=== PATIENT | female | born 1945 ===

== ENCOUNTER 2019-02-23 03:07 | Observation (INO) ==
--- NOTE | 2019-02-23 07:17 | Internal Med History&Physical ---
Date of Encounter: 02/23/19 Time of Encounter: 07:10 Internal Medicine - H&P: HPI Chief complaint: Hematochezia Admitted From: Emergency Dept History of present illness: Kathleen Bautista is a 73 F w hx provoked RLE DVT 02/16 s/p R TKA 12/28 now on Eliquis, anx/dep, who p/w bloody bowel movement. Occurred once last night, blood in stool and in toilet bowl and on toilet paper, bright red, no clots. Did not recur. Has been on AC for 1 week, and says that for the last 5 days has had nausea as well as multiple episodes nonbloody vomiting unrelated to food intake; able to hold down her Eliquis she thinks. For the last 3 days, she's noticed low intensity crampy RLQ and suprapubic abd pain that is dull, non-radiating. Has been feeling lightheaded a few times since these other symptoms started. Denies hx GI problems including no GI bleeds in the past. On ROS, does have headache from not sleeping much overnight as well as chronic R knee pain, but denies dysphagia, CP, SOB, bloating, diarrhea, leg swelling. In the OSH ED, vitals T 97.9, HR 80s, RR 16, SBP 150-160s, satting 93-95% on RA. Labs notable for WBC 10, Hb 11 (from 9 post-op), INR 2.3, K 3.5, BUN 29, Cr 1.1. Urine remarkable for trace ketones. CT a/p suggesting possible mild acute sigmoid diverticulitis but no other abnormalities. Pt given doses of Zosyn, protonix, dilaudid, and started on MIVF@75 prior to sending to [facility]. Past medical, surgical, social, and family histories reviewed and updated as below. Past Med Surg Social Fam HX - Past Medical History Medical history: arthritis Additional medical history: Depression Psychiatric history: anxiety, depression - Past Surgical History Surgical History: appendectomy, cholecystectomy Additional surgical history: L Shoulder surgery, bilateral knee replacement, right knee revision, "fatty tissue removed from stomach wall lining" 03/2018 - Social History Smoking Status: Never smoker Smokeless Tobacco Status: No Alcohol use: none Drug use: none - Family History Maternal Adopted: No Living Status: Hx Family Cardiac Disorders: Yes (congestive heart failure) Father Family Member Ethnicity: Non- Living Status: Hx Family Respiratory Disorders: Yes Hx Family GI Disorders: Yes Brother Living Status: Internal Medicine - H&P: Meds Buspirone HCl [Buspar] 10 mg PO BID 12/28/18 [History] Acetaminophen [Non-Aspirin Extra Strength] 500 mg PO Q6H PRN 7 Days #28 tablet 12/29/18 [Rx] Ascorbic Acid [Vitamin C] 500 mg PO BIDWM tablet 01/02/19 [Rx] Calcium Carbonate [Tums] 1,000 mg PO TID PRN tab.chew 01/02/19 [Rx] Citalopram [CeleXA] 20 mg PO QAM tablet 01/02/19 [Rx] Multivit/Ca/Min/Fe/FA [Thera M Plus] 1 tab PO DAILY tablet 01/02/19 [Rx] Omeprazole [PriLOSEC] 40 mg PO DAILY@0630 #30 capsule. 01/10/19 [Rx] Apixaban [Eliquis] 10 mg PO BID 02/22/19 [History] Allergy/AdvReac Type Severity Reaction Status Date / Time morphine Allergy Rash, Verified 02/23/19 00:42 Itching All Systems PM: A 10-system review of systems was performed and is negative for pertinent findings except as documented above in the HPI. - Constitutional Vitals: Temp Pulse Resp BP Pulse Ox 97.9 F 81 18 143/82 92 02/23/19 06:51 02/23/19 06:51 02/23/19 06:51 02/23/19 06:51 02/23/19 06:51 Exam: General: NAD, good eye contact, comfortable appearing, obese Head: Atraumatic, normocephalic. Face symmetric Eyes: EOMI, sclerae anicteric ENT: Mucous membranes dry. Normal oral mucosa and dentition. Trachea midline. Thoracic: No visible chest wall deformities. Normal breath sounds b/l, no wheezing or crackles Cardio: Normal S1 and S2, regular rate and rhythm, no murmurs Abdomen: Soft, nondistended, obese. Bowel sounds present. No rebound. Does have mild-moderate TTP RLQ and suprapubic region Extremities: Warm, well perfused. DP pulses 2+ b/l. No clubbing, cyanosis. Does have mild nonpitting edema b/l ankles Skin: Intact. No rashes, bruises, or ulcers Neuro: Awake, fully oriented. Good memory, concentration, attention. Speech fluent. CN II-XII grossly intact. Strength 5/5 in b/l UE and LE - Summary of Assessment and Plan Summary of Assessment and Plan: Kathleen Bautista is a 73 F w hx DVT on AC, anx/dep, morbid obesity, OA, who p/w hematochezia, RLQ abd pain, N/V, and CT suggesting possible sigmoid diverticulitis. Sigmoid diverticulitis: questionable per CT, and pain is RLQ so ?referred from sigmoid, although does report associated N/V - stop zosyn - start unasyn w plan to convert to augmentin when able to PO - NS 1L slow bolus over 4 hrs then MIVF as below Hematochezia: while on AC, vitals and Hb unremarkable, will continue AC DVT: high risk for bleeding as above - hold eliquis - hep gtt Hypokalemia: replace and monitor Chronic normocytic anemia: Hb improved to 11 from last postop check which was 9, will monitor Anx/dep: home buspar 10 bid, celexa 20 daily Morbid obesity: BMI 43 PPx: therapeutic - hep gtt and transition back to eliquis at d/c Tele: no Activity: up w assist FEN: liquid diet, MIVF NS@100 x2L, reassess in AM and can stop if has decent PO Lines: PIV Consults: Code: Full Dispo: obs for abd pain and GI bleeding, anticipate 1-2 days, will be homegoing
[2019-02-23] MEDS ORDERED: 0.9 % Sodium Chloride 1,000 ML IVC ONE (07:37)
[2019-02-23] MEDS ORDERED: Naloxone 0.4 MG/ML INJ IVP PRN (07:37)
[2019-02-23] MEDS ORDERED: *HR* Heparin 5,000 UNIT/ML VIAL IVP PRN ×2 (08:25)
[2019-02-23] MEDS ORDERED: Heparin 25,000 UNIT/250 ML D5W 25,000 UNIT/250 ML IV.SOLN IVC SCH (08:30)
[2019-02-23 09:56] LABS: Hematocrit 33.6 % (35.3-44.9); Hemoglobin 10.4 g/dL (11.5-15.4); Mean Corpuscular Hemoglobin 30.3 pg (28.0-33.3); Mean Platelet Volume 9.4 fL (9.4-12.4); Platelet Count 229 K/mcL (140-400); Red Blood Count 3.43 M/mcL (3.82-4.97); Red Cell Distribution Width 13.2 % (11.5-14.5); White Blood Count 7.2 K/mcL (4.3-11.1)
[2019-02-23 10:03] LABS: INR 1.7; Prothrombin Time 19.3 Seconds (9.4-12.1)
[2019-02-23] MEDS: Ketorolac 15 MG/ML VIAL IVP PRN ×2 (10:09→17:47)
[2019-02-23 10:20] LABS: Heparin anti-factor XA UFH > 2.00 IU/mL (0.30-0.70)
[2019-02-23] MEDS: Ampicillin/Sulbactam 3,000 MG in 0.9 % Sodium Chloride Mini Bag 100 ML IVPB SCH ×2 (10:45→19:57)
[2019-02-23] MEDS: Heparin 25,000 UNIT/250 ML D5W 25,000 UNIT/250 ML IV.SOLN IVC SCH (11:41)
[2019-02-23] MEDS: 0.9 % Sodium Chloride 1,000 ML IVC SCH (13:38)
[2019-02-23] MEDS: Acetaminophen 325 MG TABLET PO PRN (13:57)
[2019-02-24] MEDS: 0.9 % Sodium Chloride 1,000 ML IVC SCH (00:09)
[2019-02-24] MEDS: Ampicillin/Sulbactam 3,000 MG in 0.9 % Sodium Chloride Mini Bag 100 ML IVPB SCH ×2 (00:09→05:30)
[2019-02-24] MEDS: Ketorolac 15 MG/ML VIAL IVP PRN (00:15)
[2019-02-24 01:46] LABS: Hemoglobin 10.1 g/dL (11.5-15.4); Mean Corpuscular HGB Conc 31.6 g/dL (31.6-35.5); Mean Corpuscular Hemoglobin 30.6 pg (28.0-33.3); Mean Platelet Volume 9.4 fL (9.4-12.4); Platelet Count 223 K/mcL (140-400); Red Cell Distribution Width 13.1 % (11.5-14.5); White Blood Count 7.5 K/mcL (4.3-11.1)
[2019-02-24 02:01] LABS: BUN/Creatinine Ratio 18 (6-26); Blood Urea Nitrogen 10 mg/dL (8-23); Calcium 8.6 mg/dL (8.6-10.3); Carbon Dioxide 23 mEq/L (23-29); Chloride 110 mEq/L (98-107); Glucose 99 mg/dL (70-105); Magnesium 1.3 mg/dL (1.6-2.6); Osmolality,Calculated 291 (280-300); Potassium 3.7 mEq/L (3.5-5.1); Sodium 141 mEq/L (136-145); eGFR For African Americans > 60 (> 60); eGFR For Non-African Americans > 60 (> 60)
[2019-02-24 02:15] LABS: Activated Partial Thrombo Time 166.8 Seconds (26.0-36.0)
[2019-02-24 02:19] LABS: Troponin I < 0.03 ng/mL (< 0.04)
[2019-02-24 02:26] LABS: Heparin anti-factor XA UFH > 2.00 IU/mL (0.30-0.70)
[2019-02-24] MEDS: Acetaminophen 325 MG TABLET PO PRN ×2 (03:01→10:42)
[2019-02-24] MEDS: Heparin 25,000 UNIT/250 ML D5W 25,000 UNIT/250 ML IV.SOLN IVC SCH ×2 (03:35→21:19)
[2019-02-24] MEDS: Ondansetron 4 MG/2 ML VIAL IVP PRN ×2 (10:07→18:30)
[2019-02-24] MEDS: Pantoprazole 40 MG VIAL IVP SCH (10:12)
[2019-02-24] MEDS: MetroNIDAZOLE 500 MG/100 ML 500 MG/100 ML BAG IVPB SCH ×2 (11:30→20:31)
[2019-02-24] MEDS: *HR* OxyCODONE/APAP 5/325 TABLET PO PRN ×2 (11:39→20:30)
--- NOTE | 2019-02-24 11:51 | Gastroenterology Consult Note ---
<Pascual Ballard - Last Filed: 02/24/19 11:47> Date of Encounter: 02/24/19 Time of Encounter: 10:45 - Assessment and plan (1) GI bleed Current Visit: Yes Status: Acute Assessment and plan: Patient with BRBPR x one episode, no further episodes. She was recently started on Eliquis due to RLE DVT found on 02/16/2019. Consider colonoscopy, Dr. Gonzalez to make determination. Qualifiers: Qualified Code(s): K92.2 - Gastrointestinal hemorrhage, unspecified (2) Anemia Current Visit: No Status: Acute Assessment and plan: Hgb stable. On arrival to ED Hgb 11.1. On admission here Hgb 10.4 with MCV 98 and INR 1.7. This AM Hgb 10.1 with MCV 97. Continue to monitor CBC and transfuse PRBC as needed. Consider colonoscopy while inpatient. Qualifiers: Anemia type: unspecified type Qualified Code(s): D64.9 - Anemia, unspecified (3) Sigmoid diverticulitis Current Visit: No Status: Acute Assessment and plan: CT A/P showed very mild acute sigmoid diverticulitis. Continue Cipro and Flagyl. Diverticulitis does not typically cause rectal bleeding. Dr. Gonzalez to review CT images and make determination on colonoscopy while inpatient. - Time Spent With Patient Total time spent is greater than 50% in coordination of care (as documented) at patient's floor/unit and/or counseling patient: GI History of Present Illness - Data of Consult Patient: new to practice Consult date: 02/24/19 Requesting Physician: Tano Melo MD - Consult Narrative Reason for consult: GI Bleed History of present illness: Ms. Bautista is a 73 year old female with PMHx of arthritis, right total knee replacement revision 12/28/2018, RLE DVT 02/16/2019 on Eliquis who presented with complaints of BRBPR and abdominal pain. Patient reports one episode of large amount of BRBPR in bowl and with wiping. She reports she started Eliquis on 02/16. She reports RLQ pain on admission, but believes this is caused by compensation from her knee surgery. She also reports LLQ pain, that started yesterday. CT A/P showed very mild acute sigmoid diverticulitis. On arrival to ED Hgb 11.1, on admission here Hgb 10.4 with MCV 98 and INR 1.7, this AM Hgb 10.1 with MCV 97. Procedures: No record NSAIDs: Aspirin Anticoagulation: Eliquis Past Med Surg Social Fam HX - Past Medical History Medical history: arthritis Additional medical history: Depression Psychiatric history: anxiety, depression - Past Surgical History Surgical History: appendectomy, cholecystectomy Additional surgical history: L Shoulder surgery, bilateral knee replacement, right knee revision, "fatty tissue removed from stomach wall lining" 03/2018 - Social History Smoking Status: Never smoker Smokeless Tobacco Status: No Alcohol use: none Drug use: none - Family History Maternal Adopted: No Living Status: Hx Family Cardiac Disorders: Yes (congestive heart failure) Father Family Member Ethnicity: Non- Living Status: Hx Family Respiratory Disorders: Yes Hx Family GI Disorders: Yes Brother Living Status: - Gastrointestinal Gastrointestinal: Present: as per HPI - Constitutional Constitutional: as per HPI - EENT Eyes: as per HPI Ears: Present: as per HPI Nose, mouth and throat: Present: as per HPI - Cardiovascular Cardiovascular ROS: Present: as per HPI - Respiratory Respiratory IM: Present: as per HPI - Genitourinary Genitourinary: Absent: change in color, Urinary frequency - Neurological ROS Neurological GI: Present: as per HPI - Hematologic/Lymphatic Hematologic/Lymphatic pediatric: Present: as per HPI - Musculoskeletal Musculoskeletal ROS GI: Present: as per HPI - Integumentary Integumentary GI: Present: as per HPI - Psychiatric ROS Psychiatric GI: Present: as per HPI - Endocrine Endocrine IM: Present: as per HPI - Constitutional Vitals: Temp Pulse Resp BP Pulse Ox 98.3 F 81 16 181/84 94 02/24/19 11:02 02/24/19 11:02 02/24/19 11:02 02/24/19 11:02 02/24/19 11:02 General appearance: Present: cooperative, A&O X 3, no acute distress, answers questions appropriately - Head Head exam: Present: atraumatic, normocephalic - Eye Eye exam: Present: normal appearance, sclera anicteric - ENT ENT exam: Present: mucous membranes moist - Neck Neck exam general surgery: Present: normal inspection, trachea midline - Respiratory Respiratory exam: Present: CTAB. Absent: rales, rhonchi - Cardiovascular Cardiovascular exam: Present: RRR, +S1, +S2 - GI/Abdominal GI/Abdominal exam: Present: soft, tenderness (LLQ), no peritoneal signs. Absent: distended, firm, guarding - Rectal Rectal exam: Present: deferred - Extremities Exam Extremities exam: Present: warm - Neurological Exam Neurological exam: Present: no focal deficits - Psychiatric Psychiatric exam: Present: normal affect, normal mood - Skin Skin exam: Present: dry, intact, normal color, warm Results - Labs CBC & Chem 7: 02/24/19 01:31 02/24/19 01:31 Labs: Last Result 02/24/19 01:31 Calcium 8.6 Troponin I < 0.03 Entire Visit 02/24/19 01:31 Hgb 10.1 L Hct 32.0 L - ABG ABG results: PT/INR, D-dimer PT 19.3 Seconds (9.4-12.1) H 02/23/19 09:42 Consult Discharge Plan - Plan Referrals: Harpreet Navarro MD [Partnered Physician] - 03/21/19 9:10 am Lala Toure CNP [Primary Care Provider] - 02/28/19 11:00 am <Kenneth Gonzalez - Last Filed: 02/24/19 19:33> Date of Encounter: 02/24/19 Time of Encounter: 13:00 - Time Spent With Patient Total time spent is greater than 50% in coordination of care (as documented) at patient's floor/unit and/or counseling patient: GI History of Present Illness - Data of Consult Requesting Physician: Tano Melo MD - Consult Narrative History of present illness: Ms. Bautista is a 73 year old female - Constitutional Vitals: Temp Pulse Resp BP Pulse Ox 97.9 F 72 16 167/91 97 02/24/19 15:38 02/24/19 15:38 02/24/19 15:38 02/24/19 15:38 02/24/19 15:38 Results - Labs CBC & Chem 7: 02/24/19 01:31 02/24/19 01:31 - ABG ABG results: PT/INR, D-dimer PT 19.3 Seconds (9.4-12.1) H 02/23/19 09:42 - Attending Attestation I have personally performed a face to face evaluation on this patient. I have reviewed and agree with the care plan. History and Exam by me shows: Pt seen. no more rectal bleed / O/E: mild lower abd tanderness. A: pt with rectal bleed no onbious diverticulitis. poss Ischemic colitis. rec: colon in am
--- NOTE | 2019-02-24 13:14 | Internal Med Progress Note ---
Hospitalist Progress Note - Encounter Date of Encounter: 02/24/19 Time of Encounter: 09:00 - Subjective Interval History: Lily is a 73 F w hx provoked RLE DVT 02/16 s/p R TKA 12/28 now on Eliquis, anxiety, depression, who went to [facility] ER with bright red blood per rectum x 1 episode. She also mentioned intarctable nausea, vomiting with crampy lower abdomen pain b/l more on Rt side since last [address] of Abd showed possible sigmoid diverticulitis. She was admitted in the hospital and placed on empirical antibiotic and IV hydration. Pt is still c/o lower abd pain.. Denied any more bright red blood per rectum. She denied any BM today. - Exam Vitals: Temp Pulse Resp BP Pulse Ox 98.3 F 81 16 181/84 94 02/24/19 11:02 02/24/19 11:02 02/24/19 11:02 02/24/19 11:02/24/19 11:02 Exam: Gen: Alert, awake, Oriented to time,place and person Chest: Diminished breath sounds B/L, No wheezing, No crackles, No rales Heart: S1S2+ RRR No murmurs Abd: Soft, moderate tenderness in RLQ and mild tenderness in LLQ, BS +, No organomegaly Ext: No edema, pulses are palpable, No calf tenderness Neuro : No acute focal neuro deficits noticed Skin: No rash. - Assessment and Plan (1) Lower gastrointestinal hemorrhage Current Visit: No Status: Acute Assessment and Plan: Her Hb stable @ 10.1 now cont close monitoring Her bleed could be due to diverticulitis vs Ischemic colitis cont IV Heparin gtt for now GI consulted scheduled for Colonoscopy in AM (2) Sigmoid diverticulitis Current Visit: No Status: Acute Assessment and Plan: Reviewed CT of Abd .. Concerning for possible diverticulitis vs ischemic colitis GI consulted clear liquid diet for now changed abx to Cipro and Flagyl continue symptomatic and supportive care (3) Deep vein thrombosis (DVT) of right lower extremity Current Visit: Yes Status: Acute Assessment and Plan: Held Eliquis for anti coag cont Heparin gtt for now (4) Status post revision of total knee replacement Current Visit: No Status: Acute Assessment and Plan: Stable need to follow up with ortho an outpatient (5) Anxiety Current Visit: No Status: Chronic Assessment and Plan: Resumed home medications (6) Depression Current Visit: No Status: Chronic - Time Spent with Patient Total time spent is greater than 50% in coordination of care (as documented) at patient's floor/unit and/or counseling patient: Internal Medicine: Result - Labs CBC & Chem 7: 02/24/19 01:31 02/24/19 01:31 Labs: Short CBC 02/24/19 Range/Units 01:31 WBC 7.5 (4.3-11.1) K/mcL Hgb 10.1 L (11.5-15.4) g/dL Hct 32.0 L (35.3-44.9) % Plt Count 223 (140-400) K/mcL BMP 02/24/19 01:31 Sodium 141 Potassium 3.7 Chloride 110 H Carbon Dioxide 23 BUN 10 Creatinine 0.57 L Glucose 99 Calcium 8.6 Cardiac Enzymes 02/24/19 Range/Units 01:31 Troponin I < 0.03 (< 0.04) ng/mL - ABG Interpretation ABG results: PT/INR, D-dimer PT 19.3 Seconds (9.4-12.1) H 02/23/19 09:42 Consult Discharge Plan - Plan Referrals: Harpreet Navarro MD [Partnered Physician] - 03/21/19 9:10 am Lala Toure CNP [Primary Care Provider] - 02/28/19 11:00 am (3) Deep vein thrombosis (DVT) of right lower extremity Qualifiers: Affected thrombotic vein of extremity: other lower extremity vein Chronicity: acute Qualified Code(s): I82.491 - Acute embolism and thrombosis of other specified deep vein of right lower extremity (4) Status post revision of total knee replacement Qualifiers: Laterality: right Qualified Code(s): Z96.651 - Presence of right artificial knee joint (6) Depression Qualifiers: Depression Type: unspecified Qualified Code(s): F32.9 - Major depressive disorder, single episode, unspecified
[2019-02-24] MEDS ORDERED: SODIUM CHLORIDE/NAHCO3/KCL/PEG 4,000 ML SOLN.RECON PO ONE (17:00)
[2019-02-25 02:25] LABS: Activated Partial Thrombo Time 151.2 Seconds (26.0-36.0)
[2019-02-25 02:32] LABS: Heparin anti-factor XA UFH 1.5 IU/mL (0.30-0.70)
[2019-02-25] MEDS: MetroNIDAZOLE 500 MG/100 ML 500 MG/100 ML BAG IVPB SCH ×3 (03:32→17:54)
[2019-02-25] MEDS: Pantoprazole 40 MG VIAL IVP SCH (08:10)
[2019-02-25] MEDS: *HR* OxyCODONE/APAP 5/325 TABLET PO PRN ×2 (09:34→17:54)
--- NOTE | 2019-02-25 09:50 | Internal Med Progress Note ---
Hospitalist Progress Note - Encounter Date of Encounter: 02/25/19 Time of Encounter: 09:48 - Subjective Interval History: I have seen and evaluated the patient at bedside. Patient reported left and right lower quadrants abdominal pain. denies nausea or vomiting, reported headache. - Exam Vitals: Temp Pulse Resp BP Pulse Ox 98.2 F 110 17 157/93 92 02/25/19 07:22 02/25/19 07:22 02/25/19 07:22 02/25/19 07:22 02/25/19 07:22 Exam: Vitals: Reviewed General: Alert and oriented x4. In mild distress due to abdominal pain Cardiovascular: RRR, normal S1 & S2, no rubs, murmurs or gallops. Lungs: CTA b/l, no wheezes or crackles. Abdomen: Obese, soft, non-tender, no rigidity. Extremities: No edema. healed surgical scar on both knees Neurological: Normal cognition and motor skills. Rest of the physical exam is non contributory - Assessment and Plan (1) Status post revision of total knee replacement Current Visit: No Status: Acute (2) Anxiety Current Visit: No Status: Chronic (3) Depression Current Visit: No Status: Chronic (4) Lower gastrointestinal hemorrhage Current Visit: No Status: Resolved (5) Sigmoid diverticulitis Current Visit: No Status: Acute (6) Deep vein thrombosis (DVT) of right lower extremity Current Visit: Yes Status: Acute - Summary of Assessment and Plan Summary of Assessment and Plan: 73 F w hx provoked RLE DVT 02/16 s/p R TKA 12/28 now on Eliquis, anx/dep, who p/w bloody bowel movement. Assessment: 1. Acute sigmoid diverticulitis 2. GI bleed (resolved) 3. Anemia 4. Provoke DVT 5. S/P left knee replacement 6. Anxiety 7. Depression 8. VTE prophylaxis Plan H&h stable. patient denies blood stool. continues to report abdominal pain. - scheduled for colonoscopy today - continue PPIs and anti-emetics - continue IV antibiotic. On metronidazole and ciprofloxacin - NPO - accu-checks Q6HRs plus lispro low dose sliding scale - d5LR @50ml/hr added for maintenance fluids - on Buspirone and citalopram - No mechanical DVT prophylaxis due to DVT - On a heparin drip. held as patient is scheduled for colonoscopy. Disposition: - Patient to remain in the hospital due to abdominal pain secondary to acute diverticulitis on IV antibiotics. - Time Spent with Patient Total time spent is greater than 50% in coordination of care (as documented) at patient's floor/unit and/or counseling patient: Greater than 35 minutes (40) Plan of Care Discussed with: patient (and the nurse.) Internal Medicine: Result - Labs CBC & Chem 7: 02/24/19 01:31 02/24/19 01:31 - ABG Interpretation ABG results: PT/INR, D-dimer PT 19.3 Seconds (9.4-12.1) H 02/23/19 09:42 Consult Discharge Plan - Plan Referrals: Harpreet Navarro MD [Partnered Physician] - 03/21/19 9:10 am Lala Toure CNP [Primary Care Provider] - 02/28/19 11:00 am (1) Status post revision of total knee replacement Qualifiers: Laterality: right Qualified Code(s): Z96.651 - Presence of right artificial knee joint (3) Depression Qualifiers: Depression Type: unspecified Qualified Code(s): F32.9 - Major depressive disorder, single episode, unspecified (6) Deep vein thrombosis (DVT) of right lower extremity Qualifiers: Affected thrombotic vein of extremity: other lower extremity vein Chronicity: acute Qualified Code(s): I82.491 - Acute embolism and thrombosis of other specified deep vein of right lower extremity
[2019-02-25] MEDS ORDERED: *HR* Dextrose 50 % in Water (Syg) 50 ML SYRINGE IVP PRN (09:53)
[2019-02-25] MEDS ORDERED: D5% in Water 1,000 ML IVC PRN (09:53)
[2019-02-25] MEDS ORDERED: Dextrose Gel 15 GM/37.5 ML TUBE PO PRN ×2 (09:53)
--- NOTE | 2019-02-25 09:54 | Anesthesia Evaluation PreOp ---
Date of Encounter: 02/25/19 Time of Encounter: 09:51 - Past History Planned Operation: coloscopy Cardiac History: Denies any Significant Hx, Other (DVT after TKA, on Eliquis now on heparin drip) Pulmonary History: Snore, BECCA Dx (no cpap) [employer] TOBACCO History: Other (anxiety) Other Medical History: Other (obesity bmi 41) Anesthesia History: No Prior Anesthetic Complications, Past Anesthesia (L shoulder, bilat TKA, revision R,) : No Alcohol Use: none, occasionally Drug use: none Medications and Allergies Acetaminophen [Non-Aspirin Extra Strength] 500 mg PO Q6H PRN 7 Days #28 tablet 12/29/18 [Rx] Ascorbic Acid [Vitamin C] 500 mg PO BIDWM tablet 01/02/19 [Rx] Calcium Carbonate [Tums] 1,000 mg PO TID PRN tab.chew 01/02/19 [Rx] Multivit/Ca/Min/Fe/FA [Thera M Plus] 1 tab PO DAILY tablet 01/02/19 [Rx] Apixaban [Eliquis] 5 mg PO AD 02/23/19 [History] Buspirone HCl [Buspar] 10 mg PO BID 02/23/19 [History] Citalopram Hydrobromide [Citalopram HBr] 30 mg PO DAILY 02/23/19 [History] Gabapentin [Neurontin] 100 mg PO TID 02/23/19 [History] HYDROcodone/Acet 5/325 mg [[place] 5-325 mg] 1 tab PO BID PRN 02/23/19 [History] HydrOXYzine [Atarax] 10 mg PO HS PRN 02/23/19 [History] Omeprazole [PriLOSEC] 40 mg PO DAILY 02/23/19 [History] Allergy/AdvReac Type Severity Reaction Status Date / Time morphine Allergy Rash, Verified 02/23/19 00:42 Itching - Meds/Allergy Pre-op Review Medications Reviewed: Yes Allergies Reviewed: Yes Anesthesia Results - Labs 02/24/19 01:31 02/24/19 01:31 - Imaging EKG: report reviewed (NSR, borderline LVH, nonspecific t wave abn), image reviewed Anesthesia Exam Vital Signs/O2 Sat, Most Current Temp Pulse Resp BP Pulse Ox 98.2 F 110 17 157/93 92 02/25/19 07:02/25/19 07:02/25/19 07:22 02/25/19 07:02/25/19 07:22 - HEENT Pupil (Motor): Pupils equal, EOMI Mallampati: III Teeth: Edentulous Denture Type: Upper: Complete, Lower: Complete Oral Opening: Greater than 3 - FE[employer] TOBACCO LOC: Oriented [employer] Motor: Normal RUE, Normal LUE, Normal RLE, Normal LLE, Normal Face [employer] TOBACCO Sensory: Normal: RUE, LUE, RLE, LLE, Face - Cardiac Rhythm: Regular Murmur: None JVD: No - Pulmonary Breath Sounds: bilateral Clear Respiratory Effort: Symmetrical Anesthesia Assess/Plan ASA Score: 3 Level of consciousness: Cooperative Anesthetic Plan: MAC Recovery Plan: Other (floor)
[2019-02-25] MEDS ORDERED: *HR* Propofol 200 MG/20 ML VIAL IVP ONE (10:46)
[2019-02-25] MEDS ORDERED: Lidocaine -MPF 2% 2 ML VIAL ONE (10:46)
[2019-02-25] MEDS: 0.9 % Sodium Chloride 500 ML IVC SCH ×2 (10:55→20:32)
[2019-02-25] MEDS: Insulin LISPRO 300 UNITS/3 ML VIAL SQ SCH ×3 (13:31→23:48)
[2019-02-25] MEDS: D5% in Lactated Ringers 1,000 ML IVC SCH (13:48)
[2019-02-25] MEDS: Heparin 25,000 UNIT/250 ML D5W 25,000 UNIT/250 ML IV.SOLN IVC SCH (15:55)
[2019-02-25] MEDS: Acetaminophen 325 MG TABLET PO PRN (22:40)
[2019-02-26] MEDS: MetroNIDAZOLE 500 MG/100 ML 500 MG/100 ML BAG IVPB SCH (03:02)
[2019-02-26 03:37] LABS: Basophils % 0.4 %; Eosinophils # 0.5 K/mcL (0.0-0.6); Eosinophils % 5.8 %; Hematocrit 34.1 % (35.3-44.9); Hemoglobin 10.5 g/dL (11.5-15.4); Immature Granulocytes % 0.2 % (0-4); Lymphocytes # 3.7 K/mcL (0.6-4.6); Lymphocytes % 46.5 %; Mean Corpuscular HGB Conc 30.8 g/dL (31.6-35.5); Mean Corpuscular Hemoglobin 30.7 pg (28.0-33.3); Mean Corpuscular Volume 99.7 fL (83.0-100.0); Mean Platelet Volume 9.6 fL (9.4-12.4); Monocytes # 0.6 K/mcL (0.0-1.3); Neutrophils # 3.2 K/mcL (1.6-8.9); Platelet Count 225 K/mcL (140-400); Red Blood Count 3.42 M/mcL (3.82-4.97); Red Cell Distribution Width 13.2 % (11.5-14.5); Segmented Neutrophils % 40.1 %
[2019-02-26 03:47] LABS: BUN/Creatinine Ratio 12 (6-26); Blood Urea Nitrogen 9 mg/dL (8-23); Calcium 8.7 mg/dL (8.6-10.3); Carbon Dioxide 24 mEq/L (23-29); Chloride 107 mEq/L (98-107); Glucose 122 mg/dL (70-105); Magnesium 1.3 mg/dL (1.6-2.6); Osmolality,Calculated 290 (280-300); Phosphorous 3.5 mg/dL (2.7-4.5); Potassium 3.4 mEq/L (3.5-5.1); Sodium 140 mEq/L (136-145); eGFR For African Americans > 60 (> 60); eGFR For Non-African Americans > 60 (> 60)
[2019-02-26] MEDS: Insulin LISPRO 300 UNITS/3 ML VIAL SQ SCH (05:14)
[2019-02-26] MEDS: Heparin 25,000 UNIT/250 ML D5W 25,000 UNIT/250 ML IV.SOLN IVC SCH (06:35)
[2019-02-26 07:03] VITALS: BP 133/70
[2019-02-26] MEDS: Pantoprazole 40 MG VIAL IVP SCH (07:43)
[2019-02-26] MEDS: D5% in Lactated Ringers 1,000 ML IVC SCH (07:54)
[2019-02-26] MEDS: Apixaban 5 MG TABLET PO SCH ×2 (08:49→09:02)
--- NOTE | 2019-02-26 09:17 | Discharge Summary ---
Date of Encounter: 02/26/19 Time of Encounter: 09:14 - Discharge Diagnosis (1) Status post revision of total knee replacement Priority: Primary Status: Chronic Qualifiers: Laterality: right Qualified Code(s): Z96.651 - Presence of right artificial knee joint (2) Anxiety Priority: Secondary Status: Chronic (3) Depression Priority: Secondary Status: Chronic Qualifiers: Depression Type: unspecified Qualified Code(s): F32.9 - Major depressive disorder, single episode, unspecified (4) Lower gastrointestinal hemorrhage Priority: Secondary Status: Resolved (5) Sigmoid diverticulitis Priority: Primary Status: Acute (6) Deep vein thrombosis (DVT) of right lower extremity Priority: Secondary Status: Acute Qualifiers: Affected thrombotic vein of extremity: other lower extremity vein Chronicity: acute Qualified Code(s): I82.491 - Acute embolism and thrombosis of other specified deep vein of right lower extremity Hospital course: Ms. Bautista is a 73 year old female hx provoked RLE DVT 02/16 s/p R TKA 12/28 now on Eliquis, anx/dep, who p/w bloody bowel movement. Patient also reported nausea & vomiting and RLQ and LLQ abdominal pain. A CT a/p suggesting possible mild acute sigmoid diverticulitis but no other abnormalities. Patient was admitted to the hospital due to GI bleed, acute sigmoid diverticulitis. Patient was managed with IV hydration, PPIs and IV antibiotics. Apixaban was discontinued and patient started on a heparin drip. GI was consulted and patient underwent, a colonoscopy: Diverticulosis of the colon. H&H remained stable, patient did not require PRBCs transfusion. Patient is tolerating well PO diet with minimal abdominal pain, hemodynamically stable to be discharged home on oral antibiotics. Recommended to follow up with GI within 3-4 weeks after discharge. - Time Spent with Patient Total time spent providing and/or coordinating discharge services: Time spent: Greater than 30 minutes (35) - Discharge Medications Prescriptions: New Ciprofloxacin [Cipro] 500 mg PO BID 5 Days #10 tablet metroNIDAZOLE [Metronidazole] 500 mg PO TID 5 Days #15 tablet Continued Acetaminophen [Non-Aspirin Extra Strength] 500 mg PO Q6H PRN 7 Days #28 tablet PRN Reason: Mild To Moderate Pain Calcium Carbonate [Tums] 1,000 mg PO TID PRN tab.chew PRN Reason: Heartburn Ascorbic Acid [Vitamin C] 500 mg PO BIDWM tablet Multivit/Ca/Min/Fe/FA [Thera M Plus] 1 tab PO DAILY tablet Apixaban [Eliquis] 5 mg PO AD Buspirone HCl [Buspar] 10 mg PO BID Citalopram Hydrobromide [Citalopram HBr] 30 mg PO DAILY Gabapentin [Neurontin] 100 mg PO TID HYDROcodone/Acet 5/325 mg [[place] 5-325 mg] 1 tab PO BID PRN PRN Reason: Pain HydrOXYzine [Atarax] 10 mg PO HS PRN PRN Reason: Sleep Omeprazole [PriLOSEC] 40 mg PO DAILY Home Medications: Acetaminophen [Non-Aspirin Extra Strength] 500 mg PO Q6H PRN 7 Days #28 tablet 12/29/18 [Rx] Ascorbic Acid [Vitamin C] 500 mg PO BIDWM tablet 01/02/19 [Rx] Calcium Carbonate [Tums] 1,000 mg PO TID PRN tab.chew 01/02/19 [Rx] Multivit/Ca/Min/Fe/FA [Thera M Plus] 1 tab PO DAILY tablet 01/02/19 [Rx] Apixaban [Eliquis] 5 mg PO AD 02/23/19 [History] Buspirone HCl [Buspar] 10 mg PO BID 02/23/19 [History] Citalopram Hydrobromide [Citalopram HBr] 30 mg PO DAILY 02/23/19 [History] Gabapentin [Neurontin] 100 mg PO TID 02/23/19 [History] HYDROcodone/Acet 5/325 mg [[place] 5-325 mg] 1 tab PO BID PRN 02/23/19 [History] HydrOXYzine [Atarax] 10 mg PO HS PRN 02/23/19 [History] Omeprazole [PriLOSEC] 40 mg PO DAILY 02/23/19 [History] Ciprofloxacin [Cipro] 500 mg PO BID 5 Days #10 tablet 02/26/19 [Rx] metroNIDAZOLE [Metronidazole] 500 mg PO TID 5 Days #15 tablet 02/26/19 [Rx] Allergies/Adverse Reactions: Allergy/AdvReac Type Severity Reaction Status Date / Time morphine Allergy Rash, Verified 02/23/19 00:42 Itching Date of admission: 02/23/19 05:04 Primary care physician: Lala Toure CNP Consults: 02/24/19 09:37 Consult to Gastroenterology [CONS] Routine Consulting Provider: Gastroenterology Candace Reason for Consult: GI Bleed.. On anti coagulation Time Notified: 09:40 Call Completed: Yes - Constitutional Vitals: Temp Pulse Resp BP Pulse Ox 98.2 F 87 17 133/70 95 02/26/19 06:59 02/26/19 06:59 02/26/19 06:59 02/26/19 06:59 02/26/19 06:59 Exam: Vitals: Reviewed General: Alert and oriented x4. In no distress Cardiovascular: RRR, normal S1 & S2, no rubs, murmurs or gallops. Lungs: CTA b/l, no wheezes or crackles. Abdomen: Obese, soft, non-tender, no rigidity. Extremities: No edema. healed surgical scar on both knees Neurological: No focal neurological abnormalities. Rest of the physical exam is non contributory - Patient Status Disposition: Home, Self-Care Condition: Good Functional capacity at discharge: independent ambulation Overall status at discharge: patient is back to baseline - Discharge Instructions Follow Up With: Harpreet Navarro MD [Partnered Physician] - 03/21/19 9:10 am Lala Toure CNP [Primary Care Provider] - 02/28/19 11:00 am - Diet and Activity Activity: resume usual activities as tolerated Diet: low salt diet
== END 2019-02-26 11:21 | disposition home or self-care (01) ==
LOC: 3BNU → SUATTDRO 05:04
PROVIDERS: ADMIT Internal Medicine; ATTEND Internal Medicine